=== PATIENT | male | born 1940 | race Caucasian/White ===

== ENCOUNTER 2020-07-06 11:19 | Inpatient (IN) ==
[2020-07-07 06:13] LABS: Basophils % 0.5 %; Eosinophils # 0.4 K/mcL (0.0-0.6); Eosinophils % 6.1 %; Hematocrit 33.5 % (37.5-50.1); Immature Granulocytes % 0.2 % (0-4); Lymphocytes # 1.4 K/mcL (0.6-4.6); Lymphocytes % 22.6 %; Mean Corpuscular HGB Conc 32.8 g/dL (31.6-35.5); Mean Corpuscular Hemoglobin 30.2 pg (28.0-33.3); Mean Platelet Volume 11.5 fL (9.4-12.4); Monocytes # 0.7 K/mcL (0.0-1.3); Monocytes % 10.9 %; Neutrophils # 3.6 K/mcL (1.6-8.9); Platelet Count 153 K/mcL (140-400); Red Blood Count 3.64 M/mcL (4.19-5.50); Segmented Neutrophils % 59.7 %; White Blood Count 6.1 K/mcL (4.3-11.1)
[2020-07-07 06:38] LABS: BUN/Creatinine Ratio 22 (6-26); Blood Urea Nitrogen 23 mg/dL (8-23); Calcium 8.4 mg/dL (8.6-10.3); Carbon Dioxide 33 mEq/L (23-29); Chloride 101 mEq/L (98-107); Glucose 100 mg/dL (70-105); Osmolality,Calculated 290 (280-300); Potassium 4.2 mEq/L (3.5-5.1); Sodium 138 mEq/L (136-145); eGFR For African Americans > 60 (> 60); eGFR For Non-African Americans > 60 (> 60)
[2020-07-07] MEDS: amLODIPine 5 MG TABLET PO SCH (08:52)
[2020-07-07] MEDS: Aspirin Enteric Coated 81 MG Tablet PO SCH (08:52)
[2020-07-07] MEDS: Tiotropium 18 MCG inhalation IH SCH (09:22)
[2020-07-07] MEDS: Albuterol 2.5 MG/3 ML NEBULIZER IH PRN ×2 (11:39→23:42)
[2020-07-07] MEDS: Gentamicin Oint 15 GM TUBE TP SCH (16:20)
[2020-07-08] MEDS: Tiotropium 18 MCG inhalation IH SCH (09:13)
[2020-07-08] MEDS: amLODIPine 5 MG TABLET PO SCH (09:20)
[2020-07-08] MEDS: Aspirin Enteric Coated 81 MG Tablet PO SCH (09:21)
[2020-07-08] MEDS: Gentamicin Oint 15 GM TUBE TP SCH (16:44)
[2020-07-09] MEDS: Albuterol 2.5 MG/3 ML NEBULIZER IH PRN (02:33)
[2020-07-09] MEDS: amLODIPine 5 MG TABLET PO SCH (08:20)
[2020-07-09] MEDS: Aspirin Enteric Coated 81 MG Tablet PO SCH (08:20)
[2020-07-09] MEDS: Tiotropium 18 MCG inhalation IH SCH (13:03)
[2020-07-09] MEDS: Acetaminophen 325 MG TABLET PO PRN (21:01)
[2020-07-09] MEDS: Gentamicin Oint 15 GM TUBE TP SCH (21:02)
[2020-07-10] MEDS: amLODIPine 5 MG TABLET PO SCH (09:33)
[2020-07-10] MEDS: Aspirin Enteric Coated 81 MG Tablet PO SCH (09:33)
[2020-07-10] MEDS: Tiotropium 18 MCG inhalation IH SCH (10:52)
[2020-07-10] MEDS: Gentamicin Oint 15 GM TUBE TP SCH (15:17)
[2020-07-11 06:17] LABS: Basophils % 0.5 %; Eosinophils # 0.4 K/mcL (0.0-0.6); Eosinophils % 4.8 %; Hematocrit 36.7 % (37.5-50.1); Immature Granulocytes % 0.3 % (0-4); Lymphocytes # 1.3 K/mcL (0.6-4.6); Lymphocytes % 16.9 %; Mean Corpuscular HGB Conc 32.7 g/dL (31.6-35.5); Mean Corpuscular Hemoglobin 29.5 pg (28.0-33.3); Mean Corpuscular Volume 90.2 fL (83.0-100.0); Mean Platelet Volume 11.6 fL (9.4-12.4); Monocytes # 0.7 K/mcL (0.0-1.3); Monocytes % 9.2 %; Neutrophils # 5.3 K/mcL (1.6-8.9); Platelet Count 171 K/mcL (140-400); Red Blood Count 4.07 M/mcL (4.19-5.50); Segmented Neutrophils % 68.3 %; White Blood Count 7.8 K/mcL (4.3-11.1)
[2020-07-11 06:40] LABS: BUN/Creatinine Ratio 20 (6-26); Blood Urea Nitrogen 20 mg/dL (8-23); Calcium 8.6 mg/dL (8.6-10.3); Carbon Dioxide 32 mEq/L (23-29); Chloride 100 mEq/L (98-107); Glucose 95 mg/dL (70-105); Osmolality,Calculated 286 (280-300); Potassium 4.2 mEq/L (3.5-5.1); Sodium 137 mEq/L (136-145); eGFR For African Americans > 60 (> 60); eGFR For Non-African Americans > 60 (> 60)
[2020-07-11] MEDS: Tiotropium 18 MCG inhalation IH SCH (08:43)
[2020-07-11] MEDS: Aspirin Enteric Coated 81 MG Tablet PO SCH (09:07)
[2020-07-11] MEDS: Acetaminophen 325 MG TABLET PO PRN (09:07)
[2020-07-11] MEDS: amLODIPine 5 MG TABLET PO SCH (09:07)
[2020-07-11] MEDS: Gentamicin Oint 15 GM TUBE TP SCH (12:05)
[2020-07-12] MEDS: amLODIPine 5 MG TABLET PO SCH (08:21)
[2020-07-12] MEDS: Aspirin Enteric Coated 81 MG Tablet PO SCH (08:21)
[2020-07-12] MEDS: Acetaminophen 325 MG TABLET PO PRN (08:21)
[2020-07-12] MEDS: Tiotropium 18 MCG inhalation IH SCH (09:13)
[2020-07-12] MEDS: Gentamicin Oint 15 GM TUBE TP SCH (12:05)
[2020-07-12] MEDS: Albuterol 2.5 MG/3 ML NEBULIZER IH PRN (15:15)
[2020-07-13] MEDS: Aspirin Enteric Coated 81 MG Tablet PO SCH (09:35)
[2020-07-13] MEDS: amLODIPine 5 MG TABLET PO SCH (09:35)
[2020-07-13] MEDS: Gentamicin Oint 15 GM TUBE TP SCH (09:42)
[2020-07-13] MEDS: Tiotropium 18 MCG inhalation IH SCH (10:28)
[2020-07-14] MEDS: Gentamicin Oint 15 GM TUBE TP SCH (08:53)
[2020-07-14] MEDS: Aspirin Enteric Coated 81 MG Tablet PO SCH (08:53)
[2020-07-14] MEDS: amLODIPine 5 MG TABLET PO SCH (08:53)
[2020-07-14] MEDS: Tiotropium 18 MCG inhalation IH SCH (10:00)
[2020-07-15] MEDS: Aspirin Enteric Coated 81 MG Tablet PO SCH (07:56)
[2020-07-15] MEDS: amLODIPine 5 MG TABLET PO SCH (07:57)
[2020-07-15] MEDS: Tiotropium 18 MCG inhalation IH SCH (10:40)
[2020-07-16 05:31] LABS: Basophils % 0.6 %; Eosinophils # 0.5 K/mcL (0.0-0.6); Eosinophils % 7.2 %; Hematocrit 36.8 % (37.5-50.1); Immature Granulocytes % 0.3 % (0-4); Lymphocytes # 1.6 K/mcL (0.6-4.6); Lymphocytes % 22.8 %; Mean Corpuscular HGB Conc 32.6 g/dL (31.6-35.5); Mean Corpuscular Hemoglobin 29.5 pg (28.0-33.3); Mean Corpuscular Volume 90.4 fL (83.0-100.0); Mean Platelet Volume 11.5 fL (9.4-12.4); Monocytes # 0.6 K/mcL (0.0-1.3); Neutrophils # 4.2 K/mcL (1.6-8.9); Platelet Count 187 K/mcL (140-400); Red Blood Count 4.07 M/mcL (4.19-5.50); Segmented Neutrophils % 60.1 %; White Blood Count 6.9 K/mcL (4.3-11.1)
[2020-07-16 06:02] LABS: BUN/Creatinine Ratio 25 (6-26); Blood Urea Nitrogen 23 mg/dL (8-23); Calcium 8.5 mg/dL (8.6-10.3); Carbon Dioxide 30 mEq/L (23-29); Chloride 104 mEq/L (98-107); Glucose 96 mg/dL (70-105); Osmolality,Calculated 292 (280-300); Potassium 4.2 mEq/L (3.5-5.1); Sodium 139 mEq/L (136-145); eGFR For African Americans > 60 (> 60); eGFR For Non-African Americans > 60 (> 60)
[2020-07-16] MEDS: Tiotropium 18 MCG inhalation IH SCH (08:53)
[2020-07-16] MEDS: amLODIPine 5 MG TABLET PO SCH (09:12)
[2020-07-16] MEDS: Aspirin Enteric Coated 81 MG Tablet PO SCH (09:13)
[2020-07-17] MEDS: Aspirin Enteric Coated 81 MG Tablet PO SCH (08:26)
[2020-07-17] MEDS: amLODIPine 5 MG TABLET PO SCH (08:26)
[2020-07-17] MEDS: Tiotropium 18 MCG inhalation IH SCH (08:56)
[2020-07-17] MEDS: Acetaminophen 325 MG TABLET PO PRN (20:52)
[2020-07-18] MEDS: amLODIPine 5 MG TABLET PO SCH (08:54)
[2020-07-18] MEDS: Aspirin Enteric Coated 81 MG Tablet PO SCH (08:54)
[2020-07-18] MEDS: Tiotropium 18 MCG inhalation IH SCH (09:48)
[2020-07-19] MEDS: Aspirin Enteric Coated 81 MG Tablet PO SCH (08:55)
[2020-07-19] MEDS: amLODIPine 5 MG TABLET PO SCH (08:55)
[2020-07-19] MEDS: Tiotropium 18 MCG inhalation IH SCH (10:06)
[2020-07-20] MEDS: Tiotropium 18 MCG inhalation IH SCH (09:42)
[2020-07-20] MEDS: amLODIPine 5 MG TABLET PO SCH (10:14)
[2020-07-20] MEDS: Aspirin Enteric Coated 81 MG Tablet PO SCH (10:14)
[2020-07-21] MEDS: amLODIPine 5 MG TABLET PO SCH (08:54)
[2020-07-21] MEDS: Aspirin Enteric Coated 81 MG Tablet PO SCH (08:54)
[2020-07-21] MEDS: Tiotropium 18 MCG inhalation IH SCH (09:11)
[2020-07-22] MEDS: Aspirin Enteric Coated 81 MG Tablet PO SCH (09:12)
[2020-07-22] MEDS: amLODIPine 5 MG TABLET PO SCH (09:12)
[2020-07-22] MEDS: Tiotropium 18 MCG inhalation IH SCH (09:28)
[2020-07-22] MEDS ORDERED: Vancomycin 1,250 MG/262.5 ML IV.SOLN IVPB ONE (13:54)
[2020-07-22 14:37] LABS: Hematocrit 41.4 % (37.5-50.1); Hemoglobin 13.4 g/dL (12.9-16.9); Mean Corpuscular HGB Conc 32.4 g/dL (31.6-35.5); Mean Corpuscular Hemoglobin 29.5 pg (28.0-33.3); Mean Platelet Volume 11.5 fL (9.4-12.4); Platelet Count 193 K/mcL (140-400); Red Blood Count 4.55 M/mcL (4.19-5.50); Red Cell Distribution Width 13.5 % (11.5-14.5); White Blood Count 9.4 K/mcL (4.3-11.1)
[2020-07-22 14:55] LABS: BUN/Creatinine Ratio 25 (6-26); Blood Urea Nitrogen 26 mg/dL (8-23); Calcium 9.4 mg/dL (8.6-10.3); Carbon Dioxide 32 mEq/L (23-29); Chloride 100 mEq/L (98-107); Glucose 142 mg/dL (70-105); Osmolality,Calculated 293 (280-300); Potassium 4.2 mEq/L (3.5-5.1); Sodium 138 mEq/L (136-145); eGFR For African Americans > 60 (> 60); eGFR For Non-African Americans > 60 (> 60)
[2020-07-22] MEDS: Cefepime HCl 1,000 MG in 0.9 % Sodium Chloride Mini Bag 100 ML IVPB SCH (16:55)
[2020-07-23] MEDS: Cefepime HCl 1,000 MG in 0.9 % Sodium Chloride Mini Bag 100 ML IVPB SCH ×2 (05:47→17:25)
[2020-07-23] MEDS: Aspirin Enteric Coated 81 MG Tablet PO SCH (08:18)
[2020-07-23] MEDS: amLODIPine 5 MG TABLET PO SCH (08:18)
[2020-07-23] MEDS: Tiotropium 18 MCG inhalation IH SCH (11:02)
[2020-07-24] MEDS: Cefepime HCl 1,000 MG in 0.9 % Sodium Chloride Mini Bag 100 ML IVPB SCH (05:16)
[2020-07-24 07:23] VITALS: BP 136/72
[2020-07-24] MEDS: amLODIPine 5 MG TABLET PO SCH (09:44)
[2020-07-24] MEDS: Aspirin Enteric Coated 81 MG Tablet PO SCH (09:45)
[2020-07-24] MEDS: Acetaminophen 325 MG TABLET PO PRN (09:46)
[2020-07-24] MEDS: Tiotropium 18 MCG inhalation IH SCH (10:49)
[2020-07-24] MEDS ORDERED: FLU Vac QV 20-21 (6Month+)/PF 0.5 ML SYRINGE IM ONE (11:33)
== END 2020-07-24 12:18 | disposition home health service (06) | DRG 57 ==
LOC: INPPIK 18:57
PROVIDERS: ADMIT Family Medicine; ATTEND Family Medicine

== ENCOUNTER 2020-08-28 15:52 | Inpatient (IN) ==
[2020-08-28] MEDS ORDERED: Albuterol 2.5 MG/3 ML NEBULIZER IH PRN (21:33)
[2020-08-29] MEDS: amLODIPine 5 MG TABLET PO SCH (08:25)
[2020-08-29] MEDS: Aspirin Enteric Coated 81 MG Tablet PO SCH (08:25)
[2020-08-30 05:29] LABS: Basophils # 0.1 K/mcL (0.0-0.2); Basophils % 0.9 %; Eosinophils # 0.4 K/mcL (0.0-0.6); Eosinophils % 6.1 %; Hematocrit 35.2 % (37.5-50.1); Hemoglobin 11.5 g/dL (12.9-16.9); Immature Granulocytes % 0.3 % (0-4); Lymphocytes # 1.6 K/mcL (0.6-4.6); Mean Corpuscular HGB Conc 32.7 g/dL (31.6-35.5); Mean Corpuscular Hemoglobin 28.8 pg (28.0-33.3); Mean Corpuscular Volume 88.2 fL (83.0-100.0); Monocytes # 0.7 K/mcL (0.0-1.3); Monocytes % 10.4 %; Neutrophils # 4.1 K/mcL (1.6-8.9); Platelet Count 188 K/mcL (140-400); Red Blood Count 3.99 M/mcL (4.19-5.50); Red Cell Distribution Width 14.4 % (11.5-14.5); Segmented Neutrophils % 59.3 %; White Blood Count 6.8 K/mcL (4.3-11.1)
[2020-08-30 06:33] LABS: BUN/Creatinine Ratio 23 (6-26); Blood Urea Nitrogen 22 mg/dL (8-23); Calcium 8.9 mg/dL (8.6-10.3); Carbon Dioxide 32 mEq/L (23-29); Chloride 101 mEq/L (98-107); Glucose 106 mg/dL (70-105); Magnesium 1.9 mg/dL (1.6-2.6); Osmolality,Calculated 288 (280-300); Sodium 137 mEq/L (136-145); eGFR For African Americans > 60 (> 60); eGFR For Non-African Americans > 60 (> 60)
[2020-08-30] MEDS: amLODIPine 5 MG TABLET PO SCH (08:22)
[2020-08-30] MEDS: Aspirin Enteric Coated 81 MG Tablet PO SCH (08:22)
[2020-08-31] MEDS: Aspirin Enteric Coated 81 MG Tablet PO SCH (08:28)
[2020-08-31] MEDS: amLODIPine 5 MG TABLET PO SCH (08:28)
[2020-09-01] MEDS: Aspirin Enteric Coated 81 MG Tablet PO SCH (09:18)
[2020-09-01] MEDS: amLODIPine 5 MG TABLET PO SCH (09:19)
[2020-09-02] MEDS: Aspirin Enteric Coated 81 MG Tablet PO SCH (08:41)
[2020-09-02] MEDS: amLODIPine 5 MG TABLET PO SCH (08:41)
[2020-09-03] MEDS: amLODIPine 5 MG TABLET PO SCH (09:20)
[2020-09-03] MEDS: Aspirin Enteric Coated 81 MG Tablet PO SCH (09:20)
[2020-09-04 08:54] LABS: Basophils # 0.1 K/mcL (0.0-0.2); Basophils % 0.8 %; Eosinophils # 0.3 K/mcL (0.0-0.6); Eosinophils % 3.7 %; Hematocrit 38.7 % (37.5-50.1); Hemoglobin 12.5 g/dL (12.9-16.9); Immature Granulocytes % 0.3 % (0-4); Lymphocytes # 1.5 K/mcL (0.6-4.6); Lymphocytes % 19.5 %; Mean Corpuscular HGB Conc 32.3 g/dL (31.6-35.5); Mean Corpuscular Hemoglobin 28.7 pg (28.0-33.3); Mean Corpuscular Volume 88.8 fL (83.0-100.0); Mean Platelet Volume 11.3 fL (9.4-12.4); Monocytes # 0.7 K/mcL (0.0-1.3); Monocytes % 8.8 %; Neutrophils # 5.3 K/mcL (1.6-8.9); Platelet Count 180 K/mcL (140-400); Red Blood Count 4.36 M/mcL (4.19-5.50); Red Cell Distribution Width 14.3 % (11.5-14.5); Segmented Neutrophils % 66.9 %; White Blood Count 7.8 K/mcL (4.3-11.1)
[2020-09-04 09:29] LABS: BUN/Creatinine Ratio 20 (6-26); Blood Urea Nitrogen 19 mg/dL (8-23); Calcium 9.2 mg/dL (8.6-10.3); Carbon Dioxide 31 mEq/L (23-29); Chloride 103 mEq/L (98-107); Glucose 103 mg/dL (70-105); Osmolality,Calculated 291 (280-300); Potassium 4.1 mEq/L (3.5-5.1); Sodium 139 mEq/L (136-145); eGFR For African Americans > 60 (> 60); eGFR For Non-African Americans > 60 (> 60)
[2020-09-04] MEDS: Aspirin Enteric Coated 81 MG Tablet PO SCH (10:50)
[2020-09-04] MEDS: amLODIPine 5 MG TABLET PO SCH (10:51)
[2020-09-05] MEDS: amLODIPine 5 MG TABLET PO SCH (09:57)
[2020-09-05] MEDS: Aspirin Enteric Coated 81 MG Tablet PO SCH (09:57)
[2020-09-06] MEDS: Aspirin Enteric Coated 81 MG Tablet PO SCH (08:33)
[2020-09-06] MEDS: amLODIPine 5 MG TABLET PO SCH (08:33)
[2020-09-07] MEDS: amLODIPine 5 MG TABLET PO SCH (08:31)
[2020-09-07] MEDS: Aspirin Enteric Coated 81 MG Tablet PO SCH (08:31)
[2020-09-08] MEDS: Aspirin Enteric Coated 81 MG Tablet PO SCH (09:15)
[2020-09-08] MEDS: amLODIPine 5 MG TABLET PO SCH (09:16)
[2020-09-09 06:53] VITALS: BP 131/67
[2020-09-09] MEDS: amLODIPine 5 MG TABLET PO SCH (09:24)
[2020-09-09] MEDS: Aspirin Enteric Coated 81 MG Tablet PO SCH (09:24)
== END 2020-09-09 15:00 | disposition home health service (06) | DRG 728 ==
LOC: INPPIK 20:40
PROVIDERS: ADMIT Family Medicine; ATTEND Family Medicine

== ENCOUNTER 2020-11-16 15:04 | Inpatient (IN) ==
[2020-11-16] MEDS ORDERED: Albuterol 2.5 MG/3 ML NEBULIZER IH PRN (20:27)
[2020-11-16] MEDS: Ipratropium/Albuterol Neb 3 ML IH SCH (21:26)
[2020-11-16] MEDS: Budesonide/Formoterol 160/4.5 1 PUFF INH IH SCH (21:32)
[2020-11-16] MEDS: Doxycycline 100 MG CAPSULE PO SCH (21:37)
[2020-11-16] MEDS: Divalproex (24 HR) 250 MG TABLET PO SCH (21:37)
[2020-11-17] MEDS: Ipratropium/Albuterol Neb 3 ML IH SCH ×7 (00:58→23:37)
[2020-11-17] MEDS: Budesonide/Formoterol 160/4.5 1 PUFF INH IH SCH ×2 (07:47→20:32)
[2020-11-17] MEDS: Doxycycline 100 MG CAPSULE PO SCH ×2 (08:08→20:08)
[2020-11-17] MEDS: Cyanocobalamin (B-12) 1,000 MCG TABLET PO SCH (08:08)
[2020-11-17] MEDS: Aspirin Enteric Coated 81 MG Tablet PO SCH (08:09)
[2020-11-17] MEDS: amLODIPine 5 MG TABLET PO SCH (08:09)
[2020-11-17] MEDS ORDERED: NON-FORMULARY MEDICATION 1 EACH EACH (Tiotropium Bromide [Spiriva Respimat] 2 PUFF) IH SCH (09:00)
[2020-11-17] MEDS ORDERED: predniSONE 20 MG TABLET PO SCH (09:00)
[2020-11-17] MEDS: Divalproex (24 HR) 250 MG TABLET PO SCH (20:08)
[2020-11-18] MEDS: Ipratropium/Albuterol Neb 3 ML IH SCH ×5 (03:51→21:19)
[2020-11-18] MEDS: *HR* Enoxaparin 40 MG/0.4 ML SYRINGE SQ SCH (06:48)
[2020-11-18] MEDS: Cyanocobalamin (B-12) 1,000 MCG TABLET PO SCH (07:39)
[2020-11-18] MEDS: Aspirin Enteric Coated 81 MG Tablet PO SCH (07:39)
[2020-11-18] MEDS: amLODIPine 5 MG TABLET PO SCH (07:39)
[2020-11-18] MEDS: predniSONE 20 MG TABLET PO SCH (07:39)
[2020-11-18] MEDS: Doxycycline 100 MG CAPSULE PO SCH ×2 (07:39→20:10)
[2020-11-18] MEDS: Budesonide/Formoterol 160/4.5 1 PUFF INH IH SCH ×2 (08:32→21:19)
[2020-11-18] MEDS: Divalproex (24 HR) 250 MG TABLET PO SCH (20:11)
[2020-11-19] MEDS: Ipratropium/Albuterol Neb 3 ML IH SCH ×4 (04:04→22:04)
[2020-11-19] MEDS: *HR* Enoxaparin 40 MG/0.4 ML SYRINGE SQ SCH (06:38)
[2020-11-19] MEDS: Doxycycline 100 MG CAPSULE PO SCH ×2 (07:58→19:53)
[2020-11-19] MEDS: Cyanocobalamin (B-12) 1,000 MCG TABLET PO SCH (07:58)
[2020-11-19] MEDS: predniSONE 20 MG TABLET PO SCH (07:58)
[2020-11-19] MEDS: Aspirin Enteric Coated 81 MG Tablet PO SCH (07:58)
[2020-11-19] MEDS: amLODIPine 5 MG TABLET PO SCH (07:58)
[2020-11-19] MEDS: Budesonide/Formoterol 160/4.5 1 PUFF INH IH SCH ×2 (09:54→22:04)
[2020-11-19] MEDS: Divalproex (24 HR) 250 MG TABLET PO SCH (19:54)
[2020-11-20] MEDS: Ipratropium/Albuterol Neb 3 ML IH SCH ×4 (04:14→21:44)
[2020-11-20] MEDS: *HR* Enoxaparin 40 MG/0.4 ML SYRINGE SQ SCH (05:10)
[2020-11-20] MEDS: predniSONE 20 MG TABLET PO SCH (09:10)
[2020-11-20] MEDS: Aspirin Enteric Coated 81 MG Tablet PO SCH (09:10)
[2020-11-20] MEDS: Doxycycline 100 MG CAPSULE PO SCH ×2 (09:10→20:17)
[2020-11-20] MEDS: Cyanocobalamin (B-12) 1,000 MCG TABLET PO SCH (09:11)
[2020-11-20] MEDS: amLODIPine 5 MG TABLET PO SCH (09:11)
[2020-11-20] MEDS: Budesonide/Formoterol 160/4.5 1 PUFF INH IH SCH ×2 (09:23→21:46)
[2020-11-20] MEDS: Divalproex (24 HR) 250 MG TABLET PO SCH (20:17)
[2020-11-21] MEDS: Melatonin 3 MG TABLET PO PRN ×2 (02:13→20:22)
[2020-11-21] MEDS: Ipratropium/Albuterol Neb 3 ML IH SCH ×4 (04:52→22:43)
[2020-11-21] MEDS: Budesonide/Formoterol 160/4.5 1 PUFF INH IH SCH ×2 (10:25→22:43)
[2020-11-21] MEDS: Aspirin Enteric Coated 81 MG Tablet PO SCH (10:26)
[2020-11-21] MEDS: amLODIPine 5 MG TABLET PO SCH (10:26)
[2020-11-21] MEDS: Cyanocobalamin (B-12) 1,000 MCG TABLET PO SCH (10:26)
[2020-11-21] MEDS: predniSONE 10 MG TABLET PO SCH (10:26)
[2020-11-21] MEDS: *HR* Enoxaparin 40 MG/0.4 ML SYRINGE SQ SCH (10:27)
[2020-11-21] MEDS: Divalproex (24 HR) 250 MG TABLET PO SCH (20:20)
[2020-11-22] MEDS: Ipratropium/Albuterol Neb 3 ML IH SCH ×4 (04:13→22:54)
[2020-11-22] MEDS: *HR* Enoxaparin 40 MG/0.4 ML SYRINGE SQ SCH (05:33)
[2020-11-22] MEDS: predniSONE 10 MG TABLET PO SCH (08:25)
[2020-11-22] MEDS: Aspirin Enteric Coated 81 MG Tablet PO SCH (08:25)
[2020-11-22] MEDS: amLODIPine 5 MG TABLET PO SCH (08:25)
[2020-11-22] MEDS: Cyanocobalamin (B-12) 1,000 MCG TABLET PO SCH (08:25)
[2020-11-22] MEDS: Budesonide/Formoterol 160/4.5 1 PUFF INH IH SCH ×2 (10:35→22:54)
[2020-11-22] MEDS: Divalproex (24 HR) 250 MG TABLET PO SCH (20:06)
[2020-11-23] MEDS: Ipratropium/Albuterol Neb 3 ML IH SCH ×4 (03:50→22:14)
[2020-11-23] MEDS: *HR* Enoxaparin 40 MG/0.4 ML SYRINGE SQ SCH (05:54)
[2020-11-23] MEDS: predniSONE 10 MG TABLET PO SCH (09:01)
[2020-11-23] MEDS: Cyanocobalamin (B-12) 1,000 MCG TABLET PO SCH (09:01)
[2020-11-23] MEDS: amLODIPine 5 MG TABLET PO SCH (09:02)
[2020-11-23] MEDS: Aspirin Enteric Coated 81 MG Tablet PO SCH (09:02)
[2020-11-23] MEDS: Budesonide/Formoterol 160/4.5 1 PUFF INH IH SCH ×2 (10:52→22:14)
[2020-11-23] MEDS: Divalproex (24 HR) 250 MG TABLET PO SCH (20:03)
[2020-11-23] MEDS: Melatonin 3 MG TABLET PO PRN (20:03)
[2020-11-24] MEDS: Ipratropium/Albuterol Neb 3 ML IH SCH ×4 (04:18→22:44)
[2020-11-24] MEDS: *HR* Enoxaparin 40 MG/0.4 ML SYRINGE SQ SCH (06:02)
[2020-11-24] MEDS: amLODIPine 5 MG TABLET PO SCH (08:06)
[2020-11-24] MEDS: Aspirin Enteric Coated 81 MG Tablet PO SCH (08:06)
[2020-11-24] MEDS: Cyanocobalamin (B-12) 1,000 MCG TABLET PO SCH (08:07)
[2020-11-24] MEDS: Budesonide/Formoterol 160/4.5 1 PUFF INH IH SCH ×2 (09:11→22:44)
[2020-11-24] MEDS: Melatonin 3 MG TABLET PO PRN (19:50)
[2020-11-24] MEDS: Divalproex (24 HR) 250 MG TABLET PO SCH (19:50)
[2020-11-25] MEDS: Ipratropium/Albuterol Neb 3 ML IH SCH ×4 (04:30→21:12)
[2020-11-25] MEDS: *HR* Enoxaparin 40 MG/0.4 ML SYRINGE SQ SCH (05:37)
[2020-11-25 06:35] LABS: Basophils % 0.2 %; Eosinophils # 0.4 K/mcL (0.0-0.6); Hematocrit 37.7 % (37.5-50.1); Hemoglobin 11.9 g/dL (12.9-16.9); Immature Granulocytes % 0.4 % (0-4); Lymphocytes # 1.5 K/mcL (0.6-4.6); Mean Corpuscular HGB Conc 31.6 g/dL (31.6-35.5); Mean Corpuscular Hemoglobin 29.6 pg (28.0-33.3); Mean Corpuscular Volume 93.8 fL (83.0-100.0); Mean Platelet Volume 12.7 fL (9.4-12.4); Monocytes # 0.7 K/mcL (0.0-1.3); Monocytes % 6.3 %; Neutrophils # 7.8 K/mcL (1.6-8.9); Platelet Count 111 K/mcL (140-400); Red Blood Count 4.02 M/mcL (4.19-5.50); Red Cell Distribution Width 15.9 % (11.5-14.5); Segmented Neutrophils % 75.1 %; White Blood Count 10.4 K/mcL (4.3-11.1)
[2020-11-25 06:48] LABS: BUN/Creatinine Ratio 28 (6-26); Blood Urea Nitrogen 32 mg/dL (8-23); Calcium 8.6 mg/dL (8.6-10.3); Carbon Dioxide 32 mEq/L (23-29); Chloride 103 mEq/L (98-107); Glucose 94 mg/dL (70-105); Osmolality,Calculated 295 (280-300); Potassium 4.7 mEq/L (3.5-5.1); Sodium 139 mEq/L (136-145); eGFR For African Americans > 60 (> 60); eGFR For Non-African Americans > 60 (> 60)
[2020-11-25] MEDS: Aspirin Enteric Coated 81 MG Tablet PO SCH (08:53)
[2020-11-25] MEDS: Cyanocobalamin (B-12) 1,000 MCG TABLET PO SCH (08:53)
[2020-11-25] MEDS: amLODIPine 5 MG TABLET PO SCH (08:55)
[2020-11-25] MEDS: Budesonide/Formoterol 160/4.5 1 PUFF INH IH SCH ×2 (09:29→21:12)
[2020-11-25] MEDS: Divalproex (24 HR) 250 MG TABLET PO SCH (20:23)
[2020-11-26] MEDS: Ipratropium/Albuterol Neb 3 ML IH SCH ×4 (04:53→21:08)
[2020-11-26] MEDS: *HR* Enoxaparin 40 MG/0.4 ML SYRINGE SQ SCH (05:59)
[2020-11-26] MEDS: amLODIPine 5 MG TABLET PO SCH (08:13)
[2020-11-26] MEDS: Cyanocobalamin (B-12) 1,000 MCG TABLET PO SCH (08:13)
[2020-11-26] MEDS: Aspirin Enteric Coated 81 MG Tablet PO SCH (08:13)
[2020-11-26] MEDS: Budesonide/Formoterol 160/4.5 1 PUFF INH IH SCH ×2 (11:08→21:08)
[2020-11-26] MEDS: Divalproex (24 HR) 250 MG TABLET PO SCH (20:25)
[2020-11-27] MEDS: *HR* Enoxaparin 40 MG/0.4 ML SYRINGE SQ SCH (06:01)
[2020-11-27 06:25] VITALS: BP 133/91
[2020-11-27] MEDS: amLODIPine 5 MG TABLET PO SCH (09:00)
[2020-11-27] MEDS: Cyanocobalamin (B-12) 1,000 MCG TABLET PO SCH (09:00)
[2020-11-27] MEDS: Aspirin Enteric Coated 81 MG Tablet PO SCH (09:00)
[2020-11-27] MEDS: Ipratropium/Albuterol Neb 3 ML IH SCH ×2 (11:31→11:32)
[2020-11-27] MEDS: Budesonide/Formoterol 160/4.5 1 PUFF INH IH SCH (11:32)
== END 2020-11-27 13:30 | disposition home health service (06) | DRG 190 ==
LOC: INPPIK 18:49
PROVIDERS: ADMIT Family Medicine; ATTEND Family Medicine